=== PATIENT | female | born 1975 | race Hispanic/Latino ===

== ENCOUNTER 2021-08-25 13:36 | Outpatient (CLI) | payer BC | END 2021-08-25 13:37 | disposition home or self-care (01) | LOC: CSHMAMMO 13:36 | PROVIDERS: ATTEND Obstetrics & Gynecology | DX: N63.20 Unspecified lump in the left breast, unspecified quadrant (principal) | CPT/HCPCS: G0279 ==

== ENCOUNTER → 2021-08-29 | Day surgery (SDC) | payer BC | END | disposition home or self-care (01) | LOC: CSHULT 13:58 | PROVIDERS: ATTEND Obstetrics & Gynecology | PROC: 0H9U3ZX Drainage of Left Breast, Percutaneous Approach, Diagnostic (ICD-10-PCS; principal; 2021-08-29) | DX: N60.82 Other benign mammary dysplasias of left breast (principal); N62 Hypertrophy of breast | CPT/HCPCS: 19083; 19084; 88305; 88341; 88342 ==